=== PATIENT | male | born 1990 | race Caucasian/White ===

== ENCOUNTER 2019-01-16 06:32 | Emergency (ER) | payer MEDICAID ==
[~2019-01-16] VITALS: Ht 172.7 cm; Wt 73.0 kg
[2019-01-16 06:36] VITALS: BP 144/79
== END 2019-01-16 08:58 | disposition left against medical advice (07) ==
LOC: ER 06:32
DX: R68.89 Other general symptoms and signs (principal); Z53.21 Procedure and treatment not carried out due to patient leaving prior to being seen by health care provider